=== PATIENT | male | born 1990 | race African-American/Black ===

== ENCOUNTER 2021-09-14 19:14 | Outpatient (REF) | payer MEDICAID, SELFPAY ==
[2021-09-16 09:10] LABS: Hepatitis C Ab w Rflx HCV PCR Negative (Negative)
[2021-09-16 09:24] LABS: HIV-1/2 Ag & Ab Screen Negative (Negative)
== END 2021-09-14 19:15 | disposition home or self-care (01) ==
LOC: NCHCN 19:14
PROVIDERS: PCP Nurse Practitioner Family; Visit Provider Family Medicine
DX: Z11.4 Encounter for screening for human immunodeficiency virus [HIV] (principal); Z11.59 Encounter for screening for other viral diseases
CPT/HCPCS: 86803; 87389